=== PATIENT | female | born 1965 | race Two or more races ===

== ENCOUNTER 2016-08-05 10:21 | Emergency (ER) | payer MEDICAID ==
[~2016-08-05] VITALS: Ht 165.1 cm; Wt 65.8 kg
[~2016-08-05 10:21] MED LIST: METO25TA6 PO
[2016-08-05 10:29] VITALS: BP 103/73
== END 2016-08-05 10:39 | disposition home or self-care (01) ==
LOC: ER 10:22
DX: J32.9 Chronic sinusitis, unspecified (principal); F17.200 Nicotine dependence, unspecified, uncomplicated; I49.9 Cardiac arrhythmia, unspecified
CPT/HCPCS: 99283; A4606; Z7610

== ENCOUNTER 2016-12-03 20:03 | Emergency (ER) | payer MEDICAID ==
[~2016-12-03] VITALS: Ht 162.6 cm; Wt 65.8 kg
[2016-12-03 20:07] VITALS: BP 122/79
== END 2016-12-03 20:39 | disposition home or self-care (01) ==
LOC: ER 20:07
DX: J02.0 Streptococcal pharyngitis (principal); F17.200 Nicotine dependence, unspecified, uncomplicated; I49.9 Cardiac arrhythmia, unspecified
CPT/HCPCS: 99283; A4606; Z7610

== ENCOUNTER 2016-12-23 15:23 | Emergency (ER) | payer MEDICAID ==
[~2016-12-23] VITALS: Ht 162.6 cm; Wt 67.1 kg
[2016-12-23 15:23] VITALS: BP 129/82
[2016-12-23] MEDS ORDERED: LIDOCAINE VISCOUS 2% UD 15 ML UDC ONE (16:23)
[2016-12-23] MEDS ORDERED: ACETAMINOPHEN ES 500 MG TABLET ONE (16:23)
[2016-12-23] MEDS ORDERED: PENICILLIN G BENZATHINE 2.4 MMU/4 ML ML IM ONE ×2 (16:24→16:30)
[2016-12-23] MEDS ORDERED: ACETAMINOPHEN ES 500 MG TABLET PO ONE (16:30)
[2016-12-23] MEDS ORDERED: LIDOCAINE VISCOUS 2% UD 15 ML UDC MM ONE (16:30)
== END 2016-12-23 16:54 | disposition home or self-care (01) ==
LOC: ER 15:28
DX: J02.9 Acute pharyngitis, unspecified (principal); I49.9 Cardiac arrhythmia, unspecified; F17.200 Nicotine dependence, unspecified, uncomplicated
CPT/HCPCS: 87070; 87880; 96372; 99284; A4606; J0558 ×2; Z7610; 86403-TC

== ENCOUNTER 2017-01-10 09:11 | Emergency (ER) | payer MEDICAID ==
[~2017-01-10] VITALS: Ht 162.6 cm; Wt 66.2 kg
[2017-01-10 09:11] VITALS: BP 119/90
== END 2017-01-10 09:45 | disposition home or self-care (01) ==
LOC: ER 09:14
DX: R05 Cough (principal); I49.9 Cardiac arrhythmia, unspecified; F17.200 Nicotine dependence, unspecified, uncomplicated
CPT/HCPCS: 99281; 99406; A4606; Z7610; Z7502

== ENCOUNTER 2017-04-04 10:14 | Emergency (ER) | payer MEDICAID ==
[~2017-04-04] VITALS: Ht 165.1 cm; Wt 61.2 kg
[2017-04-04 10:32] VITALS: BP 111/69
== END 2017-04-04 11:24 | disposition home or self-care (01) ==
LOC: ER 10:16
DX: J06.9 Acute upper respiratory infection, unspecified (principal)
CPT/HCPCS: 71010; 99283; A4606; Z7610

== ENCOUNTER 2017-07-13 21:20 | Emergency (ER) | payer MEDICAID ==
[~2017-07-13] VITALS: Ht 172.7 cm; Wt 72.6 kg
[2017-07-13 21:26] VITALS: BP 131/75
[2017-07-13] MEDS ORDERED: KETOROLAC TROMETHAMINE 15 MG/ML VIAL ONE (21:54)
[2017-07-13] MEDS ORDERED: ONDANSETRON HCL/PF 4 MG/2 ML VIAL ONE (21:55)
[2017-07-13] MEDS ORDERED: IV NS 0.9% 1,000 ML BAG IV ONE (22:00)
[2017-07-13] MEDS ORDERED: ONDANSETRON HCL/PF 4 MG/2 ML VIAL IVP ONE (22:00)
[2017-07-13] MEDS ORDERED: KETOROLAC TROMETHAMINE INJ 30 MG/ML VIAL IV ONE (22:00)
== END 2017-07-13 23:20 | disposition home or self-care (01) ==
LOC: ER 21:20
DX: R51 Headache (principal); F41.9 Anxiety disorder, unspecified; F17.200 Nicotine dependence, unspecified, uncomplicated
CPT/HCPCS: 70450; 96361; 96374; 96375; 99284; A4606; J1885; J2405; Z7610

== ENCOUNTER 2017-07-14 21:08 | Emergency (ER) | payer MEDICAID ==
[~2017-07-14] VITALS: Ht 162.6 cm; Wt 63.5 kg
[2017-07-14 21:28] VITALS: BP 164/73
== END 2017-07-14 22:42 | disposition home or self-care (01) ==
LOC: ER 21:08
DX: J32.8 Other chronic sinusitis (principal); H60.592 Other noninfective acute otitis externa, left ear; F17.200 Nicotine dependence, unspecified, uncomplicated
CPT/HCPCS: A4606; Z7610

== ENCOUNTER 2017-08-04 20:33 | Emergency (ER) | payer MEDICAID ==
[~2017-08-04] VITALS: Ht 165.1 cm; Wt 63.5 kg
[2017-08-04 20:51] VITALS: BP 121/79
== END 2017-08-04 22:14 | disposition home or self-care (01) ==
LOC: ER 20:35
DX: M54.6 Pain in thoracic spine (principal); R05 Cough; M94.0 Chondrocostal junction syndrome [Tietze]; F17.200 Nicotine dependence, unspecified, uncomplicated
CPT/HCPCS: A4606; Z7610

== ENCOUNTER 2017-09-27 05:29 | Emergency (ER) | payer MEDICAID ==
[~2017-09-27] VITALS: Ht 162.6 cm; Wt 65.8 kg
--- NOTE | 2017-09-27 05:29 | NUR ---
PT BIBSELF C/O HEADACHE, ALSO STATES LEFT SIDE CHEST PAIN RADIATING TO BACK. PATIENT IS HYPERTENSIVE BUT OTHERWISE VSS NAD A/OX4 ABLE TO MAKE NEEDS KNOWN. WILL CONTINUE TO MONITOR FOR ANY CHANGES
--- NOTE | 2017-09-27 05:32 | NUR ---
ER MD LANDON AT BEDSIDE
[2017-09-27] MEDS ORDERED: MORPHINE SULFATE INJ 4 MG/ML DISP.SYRIN ONE (06:19)
[2017-09-27] MEDS ORDERED: ONDANSETRON HCL/PF 4 MG/2 ML VIAL ONE (06:19)
--- NOTE | 2017-09-27 06:21 | NUR ---
EKG AT BEDSIDE
--- NOTE | 2017-09-27 06:25 | NUR ---
BLOOD SENT TO LAB
[2017-09-27 06:29] LABS: BASOPHILS # (AUTO) 0.1 /CMM (0.0-0.2); BASOPHILS % (AUTO) 1.3 % (0.0-2.0); EOSINOPHILS % (AUTO) 11.5 % (0.0-6.0); HEMATOCRIT 37 % (33-45); HEMOGLOBIN 12.9 g/dL (11.5-14.8); LYMPHOCYTES # (AUTO) 3.5 /CMM (0.8-4.8); LYMPHOCYTES % (AUTO) 43.8 % (20.0-44.0); MEAN CORPUSCULAR HGB CONC 35 g/dl (31.0-36.0); MEAN CORPUSCULAR VOLUME 90 fL (82-100); MONOCYTES # (AUTO) 0.5 /CMM (0.1-1.30); MONOCYTES % (AUTO) 6.2 % (2.0-12.0); NEUTROPHILS % (AUTO) 37.2 % (43.0-81.0); PLATELET COUNT (AUTO) 292 /CMM (150-450); RDW COEFFICIENT OF VARIATION 12.7 (11.5-15.0); RED BLOOD CELL COUNT(AUTO) 4.17 MIL/uL (4.0-5.2); WHITE BLOOD COUNT (AUTO) 8.1 K/uL (4.3-11.0)
[2017-09-27] MEDS ORDERED: ONDANSETRON HCL/PF - ER 4 MG/2 ML VIAL IV ONE (06:30)
[2017-09-27] MEDS ORDERED: IV NS 0.9% 1,000 ML BAG IV ONE ×2 (06:30→08:00)
[2017-09-27] MEDS ORDERED: LABETALOL 20 MG/4 ML VIAL IV ONE (06:30)
[2017-09-27] MEDS ORDERED: MORPHINE SULFATE INJ 2 MG/ML DISP.SYRIN IV ONE (06:30)
[2017-09-27 06:39] LABS: INR 0.9 (0.87-1.13)
[2017-09-27 06:40] LABS: CALCIUM, SERUM 9.2 mg/dL (8.5-10.1); CREATININE 0.8 mg/dL (0.6-1.3); POTASSIUM 3.6 mmol/L (3.5-5.1)
[2017-09-27 08:21] VITALS: BP 135/74
== END 2017-09-27 08:25 | disposition home or self-care (01) ==
LOC: ER 05:31
DX: R51 Headache (principal); F17.200 Nicotine dependence, unspecified, uncomplicated; I49.8 Other specified cardiac arrhythmias
CPT/HCPCS: 36415; 70450-TC; 80048-TC; 85025-TC; 85730-TC; A4606; J2270; J2405; J7030; Z7610

== ENCOUNTER 2017-11-11 06:36 | Emergency (ER) | payer MEDICAID ==
[~2017-11-11] VITALS: Ht 162.6 cm; Wt 63.5 kg
[2017-11-11 06:39] VITALS: BP 127/82
[2017-11-11] MEDS ORDERED: IBUPROFEN 600 MG TABLET PO ONE ×2 (06:55→07:00)
== END 2017-11-11 08:08 | disposition home or self-care (01) ==
LOC: ER 06:36
DX: J20.9 Acute bronchitis, unspecified (principal); F17.200 Nicotine dependence, unspecified, uncomplicated; I49.9 Cardiac arrhythmia, unspecified
CPT/HCPCS: 71045-TC; A4606; Z7610

== ENCOUNTER 2019-07-07 04:21 | Emergency (ER) | payer MEDICAID ==
[~2019-07-07] VITALS: Ht 162.6 cm; Wt 70.3 kg
--- NOTE | 2019-07-07 04:30 | NUR ---
PT AAOX4. AMBULATORY WITH STEADY GAIT. BIBSELF C/O COUGH X1 MONTH AND SORE THROAT X1 WEEK. RR EVEN AND UNALABORED. PT PALCED ON MONITOR AND PULSE OX. VSS. AWAITING MD FOR EVAL. WILL CONTINUE TO MONITOR.
--- NOTE | 2019-07-07 04:43 | NUR ---
INF AND STREP SENT TO LAB
--- NOTE | 2019-07-07 04:43 | NUR ---
XRAY AT BEDSIDE
--- NOTE | 2019-07-07 05:50 | NUR ---
Patient discharged to home in stable condition. Written and verbal after care instructions given. Patient verbalizes understanding of instruction.Pt ambulatory with a steady gait
[2019-07-07 05:51] VITALS: BP 124/79
== END 2019-07-07 05:51 | disposition home or self-care (01) ==
LOC: ER 04:28
DX: J20.9 Acute bronchitis, unspecified (principal); R51 Headache; F17.200 Nicotine dependence, unspecified, uncomplicated; I49.9 Cardiac arrhythmia, unspecified
CPT/HCPCS: 71045-TC; 86403-TC

== ENCOUNTER 2019-12-02 20:26 | Emergency (ER) | payer MEDICAID ==
[~2019-12-02] VITALS: Ht 162.6 cm; Wt 71.2 kg
--- NOTE | 2019-12-02 20:41 | NUR ---
PT BIBSELF C/O LEFT TOE REDNESS X 2 DAYS, HEADACHE AND COUGH X4 WEEKS HX BRONCHITIS. PT AOX4 RR EVEN AND UNLABORED. SPEAKING IN FULL SENTENCES. NO NVD A THIS TIME. NO ACUTE DISTRESS NOTED. PT WAITING FOR MD CONTEH.
--- NOTE | 2019-12-02 20:51 | NUR ---
MICK ZEP AT BEDSIDE FOR EVAL.
--- NOTE | 2019-12-02 21:29 | NUR ---
MICK ZEP AT BEDSIDE SPEAKING TO PT REGARDING PLAN OF CARE. Patient discharged to home in stable condition. Written and verbal after care instructions given. Patient verbalizes understanding of instruction. ambulatory with a steady gait
[2019-12-02 21:33] VITALS: BP 134/99
== END 2019-12-02 21:34 | disposition home or self-care (01) ==
LOC: ER 20:29
DX: J20.9 Acute bronchitis, unspecified (principal); L03.032 Cellulitis of left toe; L03.031 Cellulitis of right toe; L60.0 Ingrowing nail
CPT/HCPCS: 71045-TC

== ENCOUNTER 2019-12-15 19:51 | Emergency (ER) | payer MEDICAID ==
[~2019-12-15] VITALS: Ht 162.6 cm; Wt 68.0 kg
[2019-12-15 20:00] VITALS: BP 122/67
== END 2019-12-15 20:35 | disposition home or self-care (01) ==
LOC: ER 19:51
DX: R05 Cough (principal)

== ENCOUNTER 2020-01-14 10:04 | Emergency (ER) | payer MEDICAID ==
[~2020-01-14] VITALS: Ht 162.6 cm; Wt 68.0 kg
[2020-01-14] MEDS ORDERED: SUMATRIPTAN SUCCINATE 25 MG TABLET ONE (10:29)
[2020-01-14] MEDS ORDERED: ACETAMINOPHEN ES 500 MG TABLET ONE (10:29)
[2020-01-14] MEDS ORDERED: METOCLOPRAMIDE HCL 10 MG/2 ML VIAL ONE ×2 (10:29→11:04)
[2020-01-14] MEDS ORDERED: ACETAMINOPHEN ES 500 MG TABLET PO ONE (10:30)
[2020-01-14] MEDS ORDERED: SUMATRIPTAN SUCCINATE 25 MG TABLET PO ONE (10:30)
[2020-01-14] MEDS ORDERED: METOCLOPRAMIDE HCL 10 MG/2 ML VIAL IV ONE ×2 (10:30→11:30)
--- NOTE | 2020-01-14 10:38 | NUR ---
PATIENT REFUSED IVP INSERTION. ONLY WANTS PO MEDICATION. MADE DR GODOY AWARE, RECEIVED VERBAL ORDER OF ZOFRAN 4MG TAB PO. CARRIED OUT
[2020-01-14] MEDS ORDERED: ONDANSETRON 4 MG TAB.RAPDIS ONE (10:39)
[2020-01-14] MEDS: IV NS 0.9% 1,000 ML BAG IV ONE ×2 (10:39→11:07)
--- NOTE | 2020-01-14 10:45 | NUR ---
WEBBING WEAVER AT BEDSIDE FOR XRAY
[2020-01-14] MEDS ORDERED: ONDANSETRON 4 MG TAB.RAPDIS PO ONE (11:00)
[2020-01-14] MEDS ORDERED: KETOROLAC TROMETHAMINE INJ 30 MG/ML VIAL IV ONE (11:00)
--- NOTE | 2020-01-14 11:05 | NUR ---
PATIENT DECIDED TO AGREE WITH IVP INSERTION. AGREED TO RECEIVE IV FLUIDS AND MEDICATIONS. MADE AWARE. DR GODOY SAYS IT'S OK TO GIVE REGLAN 10MG/2ML IV. CARRIED OUT.
[2020-01-14] MEDS ORDERED: KETOROLAC TROMETHAMINE 15 MG/ML VIAL ONE (11:09)
--- NOTE | 2020-01-14 12:04 | NUR ---
patient c/o throat pain, requests throat swab. made md aware.
--- NOTE | 2020-01-14 12:52 | NUR ---
IV removed. Catheter intact and site benign. Pressure and 4x4 applied to site. No bleeding noted.Patient discharged to home in stable condition. Written and verbal after care instructions given. Patient verbalizes understanding of instruction.
[2020-01-14 12:53] VITALS: BP 127/61
== END 2020-01-14 12:54 | disposition home or self-care (01) ==
LOC: ER 10:07
DX: R51 Headache (principal); R11.0 Nausea; R05 Cough; F17.200 Nicotine dependence, unspecified, uncomplicated; W01.0XXA Fall on same level from slipping, tripping and stumbling without subsequent striking against object, initial encounter; Y93.89 Activity, other specified; Y92.89 Other specified places as the place of occurrence of the external cause; Y99.8 Other external cause status
CPT/HCPCS: 70450; 71045; 87070; 87880; 96374; 96375; 99285; J1885; J2765 ×2; J7030 ×2; Q0162; 86403-TC

== ENCOUNTER 2020-03-24 17:13 | Emergency (ER) | payer MEDICAID ==
[~2020-03-24] VITALS: Ht 162.6 cm; Wt 68.0 kg
[2020-03-24] MEDS ORDERED: ALBUTEROL FS 2.5 MG/0.5 ML VIAL.NEB NEB ONE (17:30)
[2020-03-24] MEDS ORDERED: IPRATROPIUM NEB FS 0.5 MG/2.5 ML AMPUL.NEB NEB ONE (17:30)
[2020-03-24] MEDS ORDERED: ALBUTEROL FS 2.5 MG/3 ML VIAL.NEB ONE (17:37)
[2020-03-24] MEDS ORDERED: IPRATROPIUM NEB FS 0.5 MG/2.5 ML AMPUL.NEB ONE (17:37)
--- NOTE | 2020-03-24 17:45 | NUR ---
PT GETTING BREATHING TX, PT BK WELL.
--- NOTE | 2020-03-24 17:53 | NUR ---
c/o cough and sore throat x 1 month, no SOB. PT AAOX4, VSS. RR EVEN & UNLABORED. DENIES CP, SOB, DIZZINESS, N/V AT THIS TIME. PT SEEN & EVAL'D B6 EDILIA العراقي. WILL CONT TO MONITOR.
[2020-03-24 18:15] VITALS: BP 118/68
--- NOTE | 2020-03-24 18:15 | NUR ---
Patient discharged to home in stable condition. Written and verbal after care instructions given. Patient verbalizes understanding of instruction.
== END 2020-03-24 18:16 | disposition home or self-care (01) ==
LOC: ER 17:15
DX: J42 Unspecified chronic bronchitis (principal)
CPT/HCPCS: 71045-TC

== ENCOUNTER 2020-04-20 18:54 | Emergency (ER) | payer MEDICAID ==
[~2020-04-20] VITALS: Ht 162.6 cm; Wt 68.0 kg
[2020-04-20] MEDS ORDERED: LIDOCAINE VISCOUS 2% UD 15 ML UDC MM ONE (19:30)
[2020-04-20] MEDS ORDERED: MAG HYDROX/AL HYDROX/SIMETH 30 ML UDC PO ONE (19:30)
[2020-04-20] MEDS ORDERED: LIDOCAINE VISCOUS 2% UD 15 ML UDC ONE (19:42)
[2020-04-20] MEDS ORDERED: MAG HYDROX/AL HYDROX/SIMETH 30 ML UDC ONE (19:42)
[2020-04-20 19:45] LABS: BASOPHILS # (AUTO) 0.1 /CMM (0.0-0.2); BASOPHILS % (AUTO) 0.9 % (0.0-2.0); EOSINOPHILS % (AUTO) 7.8 % (0.0-6.0); HEMATOCRIT 40 % (33-45); HEMOGLOBIN 13.4 g/dL (11.5-14.8); LYMPHOCYTES # (AUTO) 2.9 /CMM (0.8-4.8); LYMPHOCYTES % (AUTO) 36.1 % (20.0-44.0); MEAN CORPUSCULAR HGB CONC 33 g/dl (31.0-36.0); MEAN CORPUSCULAR VOLUME 93 fL (82-100); MONOCYTES # (AUTO) 0.6 /CMM (0.1-1.30); NEUTROPHILS # (AUTO) 3.9 /CMM (1.8-8.9); NEUTROPHILS % (AUTO) 48.2 % (43.0-81.0); PLATELET COUNT (AUTO) 287 /CMM (150-450); RED BLOOD CELL COUNT(AUTO) 4.32 MIL/uL (4.0-5.2); WHITE BLOOD COUNT (AUTO) 8.1 K/uL (4.3-11.0)
[2020-04-20 20:02] LABS: ALBUMIN 3.7 g/dL (3.4-5.0); BILIRUBIN,TOTAL 0.2 mg/dL (0.2-1.0); CALCIUM, SERUM 9.7 mg/dL (8.5-10.1); POTASSIUM 3.9 mmol/L (3.5-5.1); TOTAL PROTEIN, SERUM 7.1 g/dL (6.4-8.2)
--- NOTE | 2020-04-20 20:17 | NUR ---
PT STATED SHE FEELS BETTER. VSS.
--- NOTE | 2020-04-20 20:41 | NUR ---
Patient discharged to home in stable condition. Written and verbal after care instructions given. Patient verbalizes understanding of instruction and RX.
[2020-04-20 20:42] VITALS: BP 127/68
== END 2020-04-20 20:42 | disposition home or self-care (01) ==
LOC: ER 19:02
DX: R10.13 Epigastric pain (principal); R09.82 Postnasal drip; Z20.828 Contact with and (suspected) exposure to other viral communicable diseases; F17.211 Nicotine dependence, cigarettes, in remission; R79.89 Other specified abnormal findings of blood chemistry
CPT/HCPCS: 36415; 80053; 85025; 99283; C9803; U0003

== ENCOUNTER 2020-04-28 20:38 | Emergency (ER) | payer MEDICAID ==
[~2020-04-28] VITALS: Ht 162.6 cm; Wt 68.0 kg
--- NOTE | 2020-04-28 20:52 | NUR ---
BIBSELF C/O HEADACHE X1 WEEK +VOMITTING TOO IMITREX OVERHEAD CLEANER AT 1700 AND 1900 TO ER BED 9 AWAITING MD WERO DAMON
[2020-04-28] MEDS ORDERED: diphenhydrAMINE HCL 50 MG/ML VIAL IV ONE (21:00)
[2020-04-28] MEDS ORDERED: METOCLOPRAMIDE HCL 10 MG/2 ML VIAL IV ONE (21:00)
[2020-04-28] MEDS ORDERED: IV NS 0.9% 1,000 ML IV ONE (21:00)
[2020-04-28] MEDS ORDERED: KETOROLAC TROMETHAMINE INJ 30 MG/ML VIAL IV ONE (21:00)
[2020-04-28] MEDS ORDERED: METOCLOPRAMIDE HCL 10 MG/2 ML VIAL ONE (21:06)
[2020-04-28] MEDS ORDERED: diphenhydrAMINE HCL 50 MG/ML VIAL ONE (21:06)
[2020-04-28] MEDS ORDERED: KETOROLAC TROMETHAMINE INJ 30 MG/ML VIAL ONE (21:06)
--- NOTE | 2020-04-28 21:33 | NUR ---
lab called regarding negative covid result.
[2020-04-28 21:37] LABS: BASOPHILS # (AUTO) 0.1 /CMM (0.0-0.2); BASOPHILS % (AUTO) 0.9 % (0.0-2.0); EOSINOPHILS % (AUTO) 6.1 % (0.0-6.0); HEMATOCRIT 42 % (33-45); HEMOGLOBIN 13.9 g/dL (11.5-14.8); LYMPHOCYTES # (AUTO) 2.4 /CMM (0.8-4.8); LYMPHOCYTES % (AUTO) 26.9 % (20.0-44.0); MEAN CORPUSCULAR HGB CONC 33 g/dl (31.0-36.0); MEAN CORPUSCULAR VOLUME 93 fL (82-100); MONOCYTES # (AUTO) 0.4 /CMM (0.1-1.30); MONOCYTES % (AUTO) 4.6 % (2.0-12.0); NEUTROPHILS # (AUTO) 5.5 /CMM (1.8-8.9); NEUTROPHILS % (AUTO) 61.5 % (43.0-81.0); PLATELET COUNT (AUTO) 285 /CMM (150-450); RED BLOOD CELL COUNT(AUTO) 4.51 MIL/uL (4.0-5.2); WHITE BLOOD COUNT (AUTO) 8.9 K/uL (4.3-11.0)
[2020-04-28 21:39] LABS: BILIRUBIN,URINE NEGATIVE (NEGATIVE); BLOOD, URINE NEGATIVE Ery/uL (NEGATIVE); COLOR,URINE YELLOW (YELLOW); LEUKOCYTE ESTERASE ,URINE NEGATIVE (NEGATIVE); NITRITE, URINE NEGATIVE (NEGATIVE); PROTEIN,URINE NEGATIVE (NEGATIVE); UGLUCOSE NEGATIVE (NEGATIVE); UROBILINOGEN,URINE 0.2 EU/dL (0.2)
[2020-04-28 21:54] LABS: BACTERIA,URINE None seen /HPF (None Seen); RBC,URINE 0-2 /HPF (0-2); SQUAMOUS EPITHELIAL CELL,UR 0-2 /HPF (None Seen); WBC,URINE 0-2 /HPF (0-3)
[2020-04-28 21:54] LABS: CALCIUM, SERUM 9.9 mg/dL (8.5-10.1); CARBON DIOXIDE 25 mmol/L (21-32); CHLORIDE 105 mmol/L (98-107); CREATININE 1.2 mg/dL (0.6-1.3); GLUCOSE 134 mg/dL (74-106); POTASSIUM 3.9 mmol/L (3.5-5.1); SODIUM SERUM 141 mmol/L (136-145); UREA NITROGEN, BLOOD 17 mg/dL (7-18)
[2020-04-28 21:59] LABS: ALANINE AMINOTRANSFERASE 25 U/L (12-78); ALBUMIN 4.1 g/dL (3.4-5.0); ALKALINE PHOSPHATASE 87 U/L (46-116); ASPARTATE AMINOTRANSFERASE 21 U/L (15-37); BILIRUBIN,DIRECT 0.1 mg/dL (0.0-0.2); BILIRUBIN,TOTAL 0.3 mg/dL (0.2-1.0); TOTAL PROTEIN, SERUM 7.5 g/dL (6.4-8.2)
--- NOTE | 2020-04-28 22:20 | NUR ---
PT is medically stable for D/C. IV removed. Catheter intact and site benign. Pressure and 4x4 applied to site. No bleeding noted.Patient discharged to home in stable condition. Written and verbal after care instructions given. Patient verbalizes understanding of instruction.
[2020-04-28 22:21] VITALS: BP 109/62
== END 2020-04-28 22:21 | disposition home or self-care (01) ==
LOC: ER 20:40
DX: R51.9 Headache, unspecified (principal); J02.9 Acute pharyngitis, unspecified; R09.89 Other specified symptoms and signs involving the circulatory and respiratory systems; Z20.828 Contact with and (suspected) exposure to other viral communicable diseases; R07.89 Other chest pain
CPT/HCPCS: 36415; 71045; 80048; 80076; 81001; 84484; 84703; 85025; 87426; 93005; 96361; 96374; 96375; 99285; C9803; J1200; J1885; J2765; J7030 ×2

== ENCOUNTER 2020-10-31 19:56 | Emergency (ER) | payer MEDICAID ==
[~2020-10-31] VITALS: Ht 165.1 cm; Wt 70.3 kg
--- NOTE | 2020-10-31 20:15 | NUR ---
PATIENT C/O OF LEFT SIDE CP RADIATES TO BETWEEN SHOULDER BLADES. TOOK 25MG OF ASA, NO RELIEF. PATIENT A/O X 4, RR EVEN AND UNLABORED. PATIENT CONNECETED TO MILK TRUCK DRIVER AND POX. WILL CONTINUE TO MONITOR.
[2020-10-31 20:21] LABS: BASOPHILS # (AUTO) 0.1 K/uL (0.0-0.2); BASOPHILS % (AUTO) 0.8 % (0.0-2.0); HEMATOCRIT 42 % (33-45); LYMPHOCYTES % (AUTO) 36.8 % (20.0-44.0); MEAN CORPUSCULAR HGB CONC 33 g/dl (31.0-36.0); MEAN CORPUSCULAR VOLUME 92 fL (82-100); MONOCYTES # (AUTO) 0.6 K/uL (0.1-1.30); MONOCYTES % (AUTO) 7.2 % (2.0-12.0); NEUTROPHILS # (AUTO) 3.6 K/uL (1.8-8.9); NEUTROPHILS % (AUTO) 44.2 % (43.0-81.0); PLATELET COUNT (AUTO) 319 K/uL (150-450); RED BLOOD CELL COUNT(AUTO) 4.53 MIL/uL (4.0-5.2); WHITE BLOOD COUNT (AUTO) 8.1 K/uL (4.3-11.0)
--- NOTE | 2020-10-31 20:30 | NUR ---
X RAY AT BEDSIDE
[2020-10-31 20:31] LABS: CALCIUM, SERUM 9.5 mg/dL (8.5-10.1); CARBON DIOXIDE 25 mmol/L (21-32); CHLORIDE 106 mmol/L (98-107); GLUCOSE 109 mg/dL (74-106); POTASSIUM 4.1 mmol/L (3.5-5.1); SODIUM SERUM 140 mmol/L (136-145); UREA NITROGEN, BLOOD 12 mg/dL (7-18)
[2020-10-31] MEDS ORDERED: KETOROLAC TROMETHAMINE 15 MG/ML VIAL ONE (20:49)
[2020-10-31] MEDS ORDERED: KETOROLAC TROMETHAMINE INJ 30 MG/ML VIAL IV ONE (21:00)
[2020-10-31] MEDS ORDERED: IBUP-1955 PO (21:44)
[2020-10-31 23:54] VITALS: BP 128/70
--- NOTE | 2020-10-31 23:55 | NUR ---
Patient discharged to home in stable condition. Rx and Written and verbal after care instructions given. Patient verbalizes understanding of instruction.
== END 2020-10-31 23:55 | disposition home or self-care (01) ==
LOC: ER 19:56
DX: R07.89 Other chest pain (principal); F17.200 Nicotine dependence, unspecified, uncomplicated; R94.31 Abnormal electrocardiogram [ECG] [EKG]
CPT/HCPCS: 36415; 71045; 80048; 84484 ×2; 85025; 85378; 93005 ×3; 96374; 99285; J1885

== ENCOUNTER 2020-12-17 20:04 | Emergency (ER) | payer MEDICAID ==
[~2020-12-17] VITALS: Ht 162.6 cm; Wt 72.6 kg
[~2020-12-17 20:04] MED LIST changes: +IBUP-1955 PO; -METO25TA6 PO
--- NOTE | 2020-12-17 21:00 | NUR ---
PATINET BIBSELF FOR C/O H/A AND DIZZINESS FOR THE PAST 3 DAYS. PATINET IS A/O X 4, RR EVEN AND UNLABORED, NO SOB NOTED. PATIENT CONNECTED TO CARDIAC AND POX MONITOR.
[2020-12-17] MEDS ORDERED: diphenhydrAMINE HCL 50 MG/ML VIAL ONE (21:28)
[2020-12-17] MEDS ORDERED: PROCHLORPERAZINE EDISYLATE 10 MG/2 ML VIAL ONE (21:28)
[2020-12-17] MEDS ORDERED: KETOROLAC TROMETHAMINE 15 MG/ML VIAL ONE (21:28)
[2020-12-17] MEDS ORDERED: IV NS 0.9% 500 ML BAG IV ONE (21:30)
[2020-12-17] MEDS ORDERED: diphenhydrAMINE HCL 50 MG/ML VIAL IV ONE (21:30)
[2020-12-17] MEDS ORDERED: PROCHLORPERAZINE EDISYLATE 10 MG/2 ML VIAL IVP ONE (21:30)
[2020-12-17] MEDS ORDERED: KETOROLAC TROMETHAMINE INJ 30 MG/ML VIAL IV ONE (21:30)
[2020-12-17 22:01] LABS: BASOPHILS # (AUTO) 0.1 K/uL (0.0-0.2); BASOPHILS % (AUTO) 1.2 % (0.0-2.0); EOSINOPHILS % (AUTO) 8.3 % (0.0-6.0); HEMATOCRIT 40 % (33-45); HEMOGLOBIN 13.6 g/dL (11.5-14.8); LYMPHOCYTES # (AUTO) 3.5 K/uL (0.8-4.8); LYMPHOCYTES % (AUTO) 38.4 % (20.0-44.0); MEAN CORPUSCULAR HGB CONC 34 g/dl (31.0-36.0); MEAN CORPUSCULAR VOLUME 92 fL (82-100); MONOCYTES # (AUTO) 0.6 K/uL (0.1-1.30); MONOCYTES % (AUTO) 6.7 % (2.0-12.0); NEUTROPHILS # (AUTO) 4.1 K/uL (1.8-8.9); NEUTROPHILS % (AUTO) 45.4 % (43.0-81.0); PLATELET COUNT (AUTO) 335 K/uL (150-450); RED BLOOD CELL COUNT(AUTO) 4.33 MIL/uL (4.0-5.2); WHITE BLOOD COUNT (AUTO) 9.1 K/uL (4.3-11.0)
[2020-12-17 22:18] LABS: CALCIUM, SERUM 9.1 mg/dL (8.5-10.1); POTASSIUM 4.9 mmol/L (3.5-5.1)
[2020-12-17] MEDS ORDERED: SUMA50TA PO (22:23)
[2020-12-17] MEDS ORDERED: HYDR50TA61 PO (22:23)
--- NOTE | 2020-12-17 22:31 | NUR ---
Patient discharged to home in stable condition.Rx and Written and verbal after care instructions given. Patient verbalizes understanding of instruction.
[2020-12-17 22:38] VITALS: BP 126/74
== END 2020-12-17 22:39 | disposition home or self-care (01) ==
LOC: ER 20:09
DX: G43.909 Migraine, unspecified, not intractable, without status migrainosus (principal); R42 Dizziness and giddiness
CPT/HCPCS: 36415; 80048; 85025; 96361; 96374; 96375; 99284; J0780; J1200; J1885; J7040

== ENCOUNTER 2021-01-09 09:52 | Emergency (ER) | payer MEDICAID ==
[~2021-01-09] VITALS: Ht 162.6 cm; Wt 71.7 kg
[~2021-01-09 09:52] MED LIST changes: +HYDR50TA61 PO; +SUMA50TA PO
--- NOTE | 2021-01-09 10:02 | NUR ---
TO CHAIR 1, C/O ABRASION ON RT AND LT FOREARM, "SCRATCH BY MY CAT LAST NIGHT"
[2021-01-09 10:03] VITALS: BP 134/59
[2021-01-09] MEDS: TDAP [DIPH/PERTUSSIS/TET] 0.5 ML VIAL IM ONE (10:30)
[2021-01-09] MEDS ORDERED: KETOROLAC TROMETHAMINE INJ 30 MG/ML VIAL ONE (10:41)
[2021-01-09] MEDS ORDERED: TDAP [DIPH/PERTUSSIS/TET] 0.5 ML VIAL IM ONE (10:41)
[2021-01-09] MEDS ORDERED: AMOX/CLAVULANATE 875 MG TABLET ONE (10:41)
[2021-01-09] MEDS: AMOX/CLAVULANATE 875 MG TABLET PO ONE (10:48)
[2021-01-09] MEDS: KETOROLAC TROMETHAMINE INJ 30 MG/ML VIAL IM ONE (10:49)
[2021-01-09] MEDS ORDERED: IBUP-1957 PO (11:24)
[2021-01-09] MEDS ORDERED: AMOX-430 PO (11:24)
--- NOTE | 2021-01-09 11:34 | NUR ---
Patient discharged to home in stable condition. Written and verbal after care instructions given. Patient verbalizes understanding of instruction.
== END 2021-01-09 11:35 | disposition home or self-care (01) ==
LOC: ER 09:54
DX: S40.812A Abrasion of left upper arm, initial encounter (principal); S40.811A Abrasion of right upper arm, initial encounter; S80.812A Abrasion, left lower leg, initial encounter; F17.200 Nicotine dependence, unspecified, uncomplicated; Z79.899 Other long term (current) drug therapy; W55.03XA Scratched by cat, initial encounter; Y93.89 Activity, other specified; Y92.89 Other specified places as the place of occurrence of the external cause; Y99.8 Other external cause status
CPT/HCPCS: 73090; 73110; 73130; 90471; 90715; 96372; 99284; J1885

== ENCOUNTER 2021-03-25 17:12 | Emergency (ER) | payer MEDICAID ==
[~2021-03-25] VITALS: Ht 162.6 cm; Wt 72.6 kg
[~2021-03-25 17:12] MED LIST changes: +AMOX-430 PO; +IBUP-1957 PO
--- NOTE | 2021-03-25 17:35 | NUR ---
HEADACHE, DIZZINESS, SORETHROAT AND L EAR PAIN X 5 DAYS. PT A/OX4
[2021-03-25] MEDS ORDERED: KETOROLAC TROMETHAMINE INJ 60 MG/2 ML VIAL IM ONE ×2 (18:00→18:08)
[2021-03-25] MEDS ORDERED: AMOXICILLIN TRIHYDRATE 500 MG CAPSULE PO ONE (18:00)
[2021-03-25] MEDS ORDERED: DEXAMETHASONE SOD PHOSPHATE 4 MG/ML VIAL IM ONE (18:00)
[2021-03-25] MEDS ORDERED: AMOX/CLAVULANATE 875 MG TABLET PO ONE (18:00)
[2021-03-25] MEDS ORDERED: AMOX-430 PO (18:02)
[2021-03-25] MEDS ORDERED: DEXAMETHASONE SOD PHOSPHATE 4 MG/ML VIAL ONE (18:08)
[2021-03-25] MEDS ORDERED: AMOX/CLAVULANATE 875 MG TABLET ONE ×2 (18:08→18:19)
--- NOTE | 2021-03-25 18:30 | NUR ---
Patient discharged to home in stable condition. RX Written and verbal after care instructions given. Patient verbalizes understanding of instruction. PT ambulatory with a steady gait
[2021-03-25 18:37] VITALS: BP 111/68
[2021-03-25] MEDS ORDERED: DIPH25CA83 PO (22:41)
[2021-03-25] MEDS ORDERED: AZIT250T13 PO (22:41)
== END 2021-03-25 17:35 | disposition home or self-care (01) ==
LOC: ER 17:15
DX: H66.92 Otitis media, unspecified, left ear (principal); G43.909 Migraine, unspecified, not intractable, without status migrainosus; F17.200 Nicotine dependence, unspecified, uncomplicated; Z79.899 Other long term (current) drug therapy
CPT/HCPCS: 96372 ×2; 99284; J1100; J1885

== ENCOUNTER 2021-03-25 21:06 | Emergency (ER) | payer MEDICAID ==
[~2021-03-25] VITALS: Ht 162.6 cm; Wt 72.6 kg
--- NOTE | 2021-03-25 21:38 | NUR ---
BIBS. GEN BODY RASH AND ITCHING X 2 HRS AFTER RECEIVING NEW MEDICATION. NO AIRWAY COMPROMISE. A/OX4. DIFFICULTY SWALLOWING
[2021-03-25] MEDS ORDERED: methylPREDNISolone SOD SUCC 125 MG/2ML VIAL ONE ×2 (21:49→22:18)
[2021-03-25] MEDS ORDERED: diphenhydrAMINE HCL 50 MG/ML VIAL ONE (21:49)
[2021-03-25] MEDS ORDERED: FAMOTIDINE/PF INJ 20 MG/2 ML VIAL IV ONE ×2 (21:50→22:00)
--- NOTE | 2021-03-25 21:50 | NUR ---
LAC #20G S/L; PATENT AND INTACT. IVF NS BLOOD COLLECTED AND SENT TO LAB
[2021-03-25] MEDS ORDERED: diphenhydrAMINE HCL 50 MG/ML VIAL IV ONE (22:00)
[2021-03-25] MEDS ORDERED: IV NS 0.9% 1,000 ML BAG IV ONE (22:00)
[2021-03-25] MEDS ORDERED: methylPREDNISolone SOD SUCC 125 MG/2ML VIAL IV ONE (22:00)
[2021-03-25] MEDS ORDERED: DIPH25CA83 PO (22:41)
[2021-03-25] MEDS ORDERED: AZIT250T13 PO (22:41)
--- NOTE | 2021-03-25 23:16 | NUR ---
Patient discharged to home in stable condition. Written and verbal after care instructions given. Patient verbalizes understanding of instruction. PT ambulatory with a steady gait. PT DID NOT WANT TO WAIT FOR MONOSCREEN RESULT AND WILL MUSIC MINISTER RESULT TOMORROW
[2021-03-25 23:20] VITALS: BP 125/71
[2021-03-26 01:12] LABS: MONOTEST NEGATIVE (NEGATIVE)
== END 2021-03-25 23:16 | disposition home or self-care (01) ==
LOC: ER 21:09
DX: L27.0 Generalized skin eruption due to drugs and medicaments taken internally (principal); T36.0X5A Adverse effect of penicillins, initial encounter; L50.9 Urticaria, unspecified; F17.200 Nicotine dependence, unspecified, uncomplicated; Z79.899 Other long term (current) drug therapy; Y92.89 Other specified places as the place of occurrence of the external cause
CPT/HCPCS: 36415; 86308; 96361; 96374; 96375; 99284; J1200; J2930 ×2; J3490; J7030

== ENCOUNTER 2021-04-05 10:14 | Emergency (ER) | payer MEDICAID ==
[~2021-04-05] VITALS: Ht 162.6 cm; Wt 72.6 kg
[~2021-04-05 10:14] MED LIST changes: +AZIT250T13 PO; +DIPH25CA83 PO
--- NOTE | 2021-04-05 11:36 | NUR ---
PT BIBSELF FROM HOME C/O CHEST PAIN X 2 WEEKS. A/OX4. TOLERATING R/A WELL WITH NO SOB. CONNECTED PT TO POX AND TELE MONITOR.
--- NOTE | 2021-04-05 11:41 | NUR ---
COVID ANTIGEN AND STREP SWAB COLLECTED AND SENT TO LAB
[2021-04-05] MEDS ORDERED: POLY10DR EACHEYE (14:11)
--- NOTE | 2021-04-05 14:21 | NUR ---
Patient discharged to home in stable condition. Written and verbal after care instructions given. Patient verbalizes understanding of instruction.
[2021-04-05 14:52] VITALS: BP 123/73
== END 2021-04-05 14:52 | disposition home or self-care (01) ==
LOC: ER 10:16
DX: J30.9 Allergic rhinitis, unspecified (principal); R05.9 Cough, unspecified; J02.9 Acute pharyngitis, unspecified; Z20.822 Contact with and (suspected) exposure to COVID-19; I49.9 Cardiac arrhythmia, unspecified; R03.0 Elevated blood-pressure reading, without diagnosis of hypertension; F17.200 Nicotine dependence, unspecified, uncomplicated
CPT/HCPCS: 71045; 87070; 87426; 87880; 93005; 99285; C9803; 86403-TC

== ENCOUNTER 2021-04-30 17:09 | Emergency (ER) | payer MEDICAID ==
[~2021-04-30] VITALS: Ht 165.1 cm; Wt 62.1 kg
[~2021-04-30 17:09] MED LIST changes: +POLY10DR EACHEYE
[2021-04-30 17:36] VITALS: BP 146/76
--- NOTE | 2021-04-30 17:42 | NUR ---
THE PATIENT BIBS C/O H/A, BODY ACHES, LEG AND BACK ACHE. COUGH FOR 3 WEEKS. SORE THROAT. IN ROOM AIR. DENIES SOB. RESPIRATION REGULAR AND UNLABORED. WILL CONTINUE TO MONITOR THE PATIENT.
--- NOTE | 2021-04-30 18:18 | NUR ---
ORAL TEMP 99.7F
--- NOTE | 2021-04-30 18:37 | NUR ---
DR GODOY TALKING TO THE PATIENT
--- NOTE | 2021-04-30 19:05 | NUR ---
COVID SWAB DONE AND SENT
[2021-04-30] MEDS ORDERED: GUAI1TBM19 PO (19:52)
[2021-04-30] MEDS ORDERED: FLUT1BLS IH (19:52)
== END 2021-04-30 20:21 | disposition home or self-care (01) ==
LOC: ER 17:11
DX: J42 Unspecified chronic bronchitis (principal); Z20.822 Contact with and (suspected) exposure to COVID-19; F17.200 Nicotine dependence, unspecified, uncomplicated
CPT/HCPCS: 71045; 87426; 99284; C9803

== ENCOUNTER 2021-10-11 16:40 | Emergency (ER) | payer MEDICAID ==
[~2021-10-11] VITALS: Ht 157.5 cm; Wt 69.9 kg
[~2021-10-11 16:40] MED LIST changes: +FLUT1BLS IH; +GUAI1TBM19 PO
--- NOTE | 2021-10-11 17:15 | NUR ---
AT BED SIDE
[2021-10-11 17:21] VITALS: BP 140/66
[2021-10-11] MEDS ORDERED: diphenhydrAMINE HCL 50 MG/ML VIAL IV ONE ×2 (18:00→20:30)
[2021-10-11] MEDS ORDERED: IV NS 0.9% 1,000 ML BAG IV ONE (18:00)
[2021-10-11] MEDS ORDERED: KETOROLAC TROMETHAMINE INJ 30 MG/ML VIAL IV ONE ×2 (18:00→20:30)
--- NOTE | 2021-10-11 18:00 | NUR ---
C/O HEADACHE & SORE THROAT X 2 DAYS. AMBULATORY, AAOX4.
[2021-10-11] MEDS ORDERED: diphenhydrAMINE HCL 50 MG/ML VIAL ONE ×2 (18:31→20:36)
[2021-10-11] MEDS ORDERED: KETOROLAC TROMETHAMINE INJ 30 MG/ML VIAL ONE (18:32)
[2021-10-11] MEDS ORDERED: KETOROLAC TROMETHAMINE 15 MG/ML VIAL ONE (20:36)
[2021-10-11] MEDS ORDERED: DIPH25TA25 PO (21:04)
--- NOTE | 2021-10-11 21:23 | NUR ---
Patient discharged to home in stable condition. Written and verbal after care instructions given. Patient verbalizes understanding of instruction.
== END 2021-10-11 21:28 | disposition home or self-care (01) ==
LOC: ER 16:44
DX: R51.9 Headache, unspecified (principal); R05.9 Cough, unspecified; J02.9 Acute pharyngitis, unspecified; Z20.822 Contact with and (suspected) exposure to COVID-19; Z79.899 Other long term (current) drug therapy
CPT/HCPCS: 71045; 87070; 87426; 87880; 96361; 96374; 96375; 96376; 99285; C9803; J1200 ×2; J1885 ×2; 86403-TC

== ENCOUNTER 2021-12-26 11:57 | Emergency (ER) | payer MEDICAID ==
[~2021-12-26] VITALS: Ht 162.6 cm; Wt 72.6 kg
[~2021-12-26 11:57] MED LIST changes: +DIPH25TA25 PO
--- NOTE | 2021-12-26 12:03 | NUR ---
CAME IN FOR MID CHEST PRESSURE ON AND OFF x 1 MONTH, RADIATIONG TO BACK AND R SHOULDER. ALSO C/O SORE THROAT, HEADACHE. TO ER BED 9, HOOKED TO RECYCLE DRIVER, NOTED SINUS RHYTHM. CHANGED TO HOSP GOWN, WARM BLANKET PROVIDED. PATIENT AAO x 4. BREATHING EVENA DNUNLABORED. AWAITING MD CONTEH.
--- NOTE | 2021-12-26 12:32 | NUR ---
DR GODOY AT BEDSIDE
[2021-12-26 12:49] LABS: BASOPHILS # (AUTO) 0.1 K/uL (0.0-0.2); BASOPHILS % (AUTO) 0.9 % (0.0-2.0); HEMATOCRIT 43 % (33-45); HEMOGLOBIN 14.2 g/dL (11.5-14.8); LYMPHOCYTES # (AUTO) 2.3 K/uL (0.8-4.8); LYMPHOCYTES % (AUTO) 32.8 % (20.0-44.0); MEAN CORPUSCULAR HGB CONC 33 g/dl (31.0-36.0); MEAN CORPUSCULAR VOLUME 92 fL (82-100); MONOCYTES # (AUTO) 0.4 K/uL (0.1-1.30); MONOCYTES % (AUTO) 6.4 % (2.0-12.0); NEUTROPHILS # (AUTO) 3.6 K/uL (1.8-8.9); NEUTROPHILS % (AUTO) 51.9 % (43.0-81.0); PLATELET COUNT (AUTO) 293 K/uL (150-450); RED BLOOD CELL COUNT(AUTO) 4.63 MIL/uL (4.0-5.2); WHITE BLOOD COUNT (AUTO) 6.9 K/uL (4.3-11.0)
[2021-12-26 13:20] LABS: CALCIUM, SERUM 9.2 mg/dL (8.5-10.1); CARBON DIOXIDE 24 mmol/L (21-32); CHLORIDE 106 mmol/L (98-107); CREATININE 1.1 mg/dL (0.6-1.3); GLUCOSE 130 mg/dL (74-106); SODIUM SERUM 138 mmol/L (136-145); UREA NITROGEN, BLOOD 11 mg/dL (7-18)
[2021-12-26] MEDS ORDERED: AZIT250T13 PO (14:28)
[2021-12-26 14:42] VITALS: BP 119/65
== END 2021-12-26 14:43 | disposition home or self-care (01) ==
LOC: ER 11:58
DX: J40 Bronchitis, not specified as acute or chronic (principal); R07.89 Other chest pain; F17.200 Nicotine dependence, unspecified, uncomplicated; Z79.899 Other long term (current) drug therapy
CPT/HCPCS: 36415; 71045-TC; 80048-TC; 83880; 84484-TC; 85025-TC

== ENCOUNTER 2022-05-26 14:44 | Emergency (ER) | payer MEDICAID ==
[~2022-05-26] VITALS: Ht 162.6 cm; Wt 72.6 kg
[2022-05-26 14:56] VITALS: BP 114/85
--- NOTE | 2022-05-26 14:57 | NUR ---
C/O COUGH CONGESTION X 1 MONTH. NO SOB, NO CP. AFEBRILE UPON ARRIVAL. PT AMBULATED TO ROOM WITH STEADY GAIT AND NO ACUTE DISTRESS. VSS.
[2022-05-26] MEDS ORDERED: BENZONATATE 100 MG CAPSULE PO PRN (16:00)
--- NOTE | 2022-05-26 16:01 | NUR ---
Patient discharged to home in stable condition. Written and verbal after care instructions given. Patient verbalizes understanding of instruction.
[2022-05-26] MEDS ORDERED: ALBU18HF2 INH (16:55)
[2022-05-26] MEDS ORDERED: BENZ-13 PO (16:55)
== END 2022-05-26 16:10 | disposition home or self-care (01) ==
LOC: ER 14:49
DX: R05.9 Cough, unspecified (principal); R09.81 Nasal congestion; F17.200 Nicotine dependence, unspecified, uncomplicated; Z79.899 Other long term (current) drug therapy
CPT/HCPCS: 71045-TC

== ENCOUNTER 2025-04-07 14:16 | Emergency (ER) | payer MEDICAID, OTHER ==
[~2025-04-07] VITALS: Ht 162.6 cm; Wt 76.7 kg
[~2025-04-07 14:16] MED LIST changes: +ALBU18HF2 INH; +BENZ-13 PO
[2025-04-07 14:29] VITALS: BP 129/73; TEMP 98; O2SAT 97
[2025-04-07] MEDS ORDERED: GUAI1TBM19 PO (14:44)
[2025-04-07] MEDS ORDERED: IBUP-1953 PO (14:44)
[2025-04-07] MEDS ORDERED: PHEN177S31 PO (14:44)
== END 2025-04-07 16:51 | disposition home or self-care (01) ==
LOC: ER 14:38
DX: J06.9 Acute upper respiratory infection, unspecified (principal); F17.200 Nicotine dependence, unspecified, uncomplicated; F41.9 Anxiety disorder, unspecified; I48.91 Unspecified atrial fibrillation; J42 Unspecified chronic bronchitis; Z79.1 Long term (current) use of non-steroidal anti-inflammatories (NSAID); Z79.51 Long term (current) use of inhaled steroids